=== PATIENT | female | born 1960 | race Caucasian/White ===

== ENCOUNTER → 2018-01-01 | Outpatient (CLI) | payer MEDICARE, MEDICAID ==
[~2018-01-01] MED LIST: BUPROPION100 MG PO; CELEXA40 MG PO; COREG 6.256.25 MG/TA PO; DOXYCYCLINE 10100 MG PO; GABAPENTIN100 M1 PO; HYZAAR 25 MG-101 TAB PO; LEVOTHYROXINE0.05 MG PO; LISINOPRIL/HCTZ1 TA1 PO; MULTIPLE VITAMI1 CTB PO; MVI PO; PERCOCET 325 MG1 TA2 PO; TOPROL XL25 MG PO; TRAZADONE HYDR100 MG PO; VICODIN 5/5001 UDTAB PO; VICODIN PO; ZANTAC 150150 MG PO
== END ==
LOC: COL.RAD 12:56
DX: R90.82 White matter disease, unspecified (principal)
CPT/HCPCS: A9585